=== PATIENT | male | born 1960 | race Caucasian/White ===

== ENCOUNTER 2019-09-25 08:30 | Day surgery (SDC) | payer OTHER ==
[~2019-09-25 08:30] MED LIST: Midazolam 1 MG/ML 2 ML SDV ONE; Propofol 200 MG/20 ML SDV ONE
[2019-09-25] MEDS ORDERED: Sodium Chloride 0.9% 10 ML Syringe FLUSH PRN (08:45)
[2019-09-25] MEDS ORDERED: Lactated Ringers 1,000 ML IV SCH (08:45)
--- NOTE | 2019-09-25 09:47 | PCM.HPR ---
H & P Addendum review - H & P Addendum Review Date of Original H & P: 09/16/19 Date Reviewed: 09/25/19 Time Reviewed: 09:46 Patient was Examined: No Changes
[2019-09-25] MEDS ORDERED: Midazolam 1 MG/ML 2 ML SDV ONE ×2 (09:50→09:51)
[2019-09-25] MEDS ORDERED: Propofol 200 MG/20 ML SDV ONE (09:50)
--- NOTE | 2019-09-25 10:07 | PCM.OPNOTE ---
- General Post-Op/Procedure Note Date of Surgery/Procedure: 09/25/19 Operative Procedure(s): EGD Findings: Normal Pre Op Diagnosis: Epigastric Pain Post-Op Diagnosis: Same Anesthesia Technique: MAC Primary Surgeon: Carmine Rodriguez Anesthesia Provider: Lindsay Jiménez Complications: None Condition: Good
[2019-09-25 13:08] VITALS: BP 101/52; PULSE 56
--- NOTE | 2019-09-26 10:44 | OR ---
Date of Procedure: 09/25/2019 PREOPERATIVE DIAGNOSIS: Epigastric abdominal pain with gastroesophageal reflux disease. POSTOPERATIVE DIAGNOSIS: Normal esophagogastroduodenoscopy. PROCEDURE: EGD. ANESTHESIA: IV sedation. PROCEDURE: Patient was brought to the procedure room where he was placed on his left side and IV sedation administered. Oral bite block was placed and the upper endoscope advanced into the esophagus under direct vision without difficulty. Vocal cords were viewed and were normal. Scope was advanced to the third portion of the duodenum. Duodenum and pylorus are normal. Antrum and body of the stomach were normal. Retroflexion reveals a normal-appearing fundus. There was no hiatal hernia. Squamocolumnar junction is normal. There were no ulcerations, strictures, erosions, or other abnormalities in the stomach or esophagus that would account for his pain. Air was removed from the stomach and the scope withdrawn. Patient tolerated the procedure well and returned to recovery in stable condition. Patient will follow up with Dr. Gaxiola for further evaluation. He had a recent colonoscopy. If a CT scan has not been obtained recently, that could be considered. NEGRITO HANSON MD /[id number]
== END 2019-09-25 12:02 | disposition home or self-care (01) ==
LOC: LL.SDS 08:30
PROVIDERS: ATTEND Surgery
DX: R10.13 Epigastric pain (principal); K21.9 Gastro-esophageal reflux disease without esophagitis; E78.5 Hyperlipidemia, unspecified; Z79.899 Other long term (current) drug therapy
CPT/HCPCS: 43235; J2250; J2704; J7120

== ENCOUNTER 2022-01-11 17:01 | Emergency (ER) | payer BC ==
[2022-01-11] MEDS ORDERED: GI Cocktail Oral Solution 30 ML PO ONE (17:11)
[2022-01-11 17:59] LABS: ANION GAP 10.2 meq/L (7-15); CHLORIDE,CL 107 mmol/L (98-107); SODIUM,NA 142 mmol/L (136-145)
[2022-01-11 20:01] VITALS: BP 127/86; PULSE 74
== END 2022-01-11 19:20 | disposition home or self-care (01) ==
LOC: LL.ED 17:01
DX: R10.13 Epigastric pain (principal); K21.9 Gastro-esophageal reflux disease without esophagitis; J44.9 Chronic obstructive pulmonary disease, unspecified; M19.90 Unspecified osteoarthritis, unspecified site; E78.00 Pure hypercholesterolemia, unspecified; I10 Essential (primary) hypertension; Z79.899 Other long term (current) drug therapy; Z79.82 Long term (current) use of aspirin; Z72.0 Tobacco use
CPT/HCPCS: 36415; 71045; 74019; 80053; 81003; 82150; 83605; 83690; 83735; 83880; 84484; 85025; 85379; 93005; 93010; 99284; 99285-25; A9270-GY

== ENCOUNTER 2022-02-16 08:41 | Day surgery (SDC) | payer BC ==
[~2022-02-16 08:41] MED LIST changes: -Midazolam 1 MG/ML 2 ML SDV ONE
[2022-02-16] MEDS ORDERED: Sodium Chloride 0.9% 10 ML Syringe FLUSH PRN (08:45)
[2022-02-16] MEDS ORDERED: Lactated Ringers 1,000 ML IV SCH (09:00)
[2022-02-16 12:53] VITALS: BP 121/77; PULSE 53
== END 2022-02-16 11:06 | disposition home or self-care (01) ==
LOC: LL.SDS 08:41
PROVIDERS: ATTEND Surgery
DX: K29.50 Unspecified chronic gastritis without bleeding (principal); K21.00 Gastro-esophageal reflux disease with esophagitis, without bleeding; K22.89 Other specified disease of esophagus; E78.2 Mixed hyperlipidemia; G40.109 Localization-related (focal) (partial) symptomatic epilepsy and epileptic syndromes with simple partial seizures, not intractable, without status epilepticus
CPT/HCPCS: J2704; J7120

== ENCOUNTER 2024-04-22 10:50 | Emergency (ER) | payer BC ==
[2024-04-22] MEDS: Lidocaine 2% with EPINEPHrine 1:100,000 20 ML MDV INJECT ONE (11:47)
[2024-04-22] MEDS: Lidocaine 1% 5 ML VIAL INJECT ONE (11:48)
[2024-04-22] MEDS: Bacitracin/Neomycin/Polymyxin B Oint 0.9 GM U/D Packet TOP ONE (11:49)
[2024-04-22] MEDS: Diphtheria,Pertussis(Acell),Tetanus Vaccine 0.5 ML Syringe IM ONE (12:08)
[2024-04-22 12:50] VITALS: BP 129/88; PULSE 62
== END 2024-04-22 12:40 | disposition home or self-care (01) ==
LOC: LL.ED 10:50
DX: S01.01XA Laceration without foreign body of scalp, initial encounter (principal); J44.9 Chronic obstructive pulmonary disease, unspecified; K21.9 Gastro-esophageal reflux disease without esophagitis; Z23 Encounter for immunization; Z79.899 Other long term (current) drug therapy; Z79.82 Long term (current) use of aspirin; W26.8XXA Contact with other sharp object(s), not elsewhere classified, initial encounter; Y99.0 Civilian activity done for income or pay
CPT/HCPCS: 12002; 90471; 90715; 99282-25; J3490